=== PATIENT | female | born 1955 | race Caucasian/White ===

== ENCOUNTER → 2016-12-30 | Outpatient (CLI) | payer OTHER ==
--- NOTE | 2016-12-30 12:12 | RAD ---
MR of the right tibia-fibula and MR of the right ankle HISTORY: Anterior tibial pain and swelling after a fall 2 weeks ago. Right ankle pain and swelling after a fall 2 weeks ago. TECHNIQUE: Routine multiplanar sequences. Right tibia-fibula This study includes the mid to distal tibia and fibula, not the proximal tibia and fibula. There is a complex subcutaneous collection anterior to the distal tibia and fibula. This does include a component of hyperintense T1 signal, compatible with hemorrhagic content. Measures about 4 cm wide by 11 cm cephalocaudal by 18 mm deep. No evidence of intramuscular tear or intramuscular hematoma. The visualized tibia and fibula are intact. Right ankle The peroneal tendons are intact. Anterior talofibular ligament and calcaneofibular ligament are mildly ill-defined compatible with scarring, but no acute rupture or discontinuity. Posterior talofibular ligament intact. Anterior inferior tibiofibular ligament demonstrates mild sprain or scarring but no discontinuity. The posterior tibial and flexor tendons are intact. Deltoid ligament intact. Anterior tibial and extensor tendons are intact. Achilles tendon intact. No acute plantar fasciitis. Subtalar joints are patent. Tarsal sinus intact. Subtalar joints are patent. No bone lesion. No acute fracture. Trace fluid in the posterior subtalar joint. Subcutaneous edema and swelling around the ankle. IMPRESSION: 1. Subcutaneous collection anterior to the distal tibia and fibula, most compatible with a hematoma. 2. Lateral ankle ligament sprain/scarring without rupture. Electronically signed by: Ronaldo Dominguez MD (12/30/2016 12:09 PM)
== END | disposition home or self-care (01) ==
LOC: MRI 08:32
PROVIDERS: ATTEND Family Medicine
DX: M62.40 Contracture of muscle, unspecified site (principal); M54.2 Cervicalgia; M25.571 Pain in right ankle and joints of right foot; V89.2XXD Person injured in unspecified motor-vehicle accident, traffic, subsequent encounter; M25.471 Effusion, right ankle
CPT/HCPCS: 73718; 73721